=== PATIENT | male | born 1960 | race Caucasian/White ===

== ENCOUNTER → 2018-07-13 07:25 | Outpatient (CLI) | payer BC, SELFPAY ==
[2018-07-13 08:31] LABS: Alanine Aminotransferase 52 IU/L (21-72); Albumin 4.5 g/dL (3.5-5.0); Albumin Globulin Ratio 1.5 (1.0-2.8); Alkaline Phosphatase 58 U/L (38-126); Aspartate Aminotransferase 31 IU/L (17-59); BUN Creatinine Ratio 17.8 (6-22); Bilirubin Total 0.7 mg/dL (0.2-1.3); Blood Urea Nitrogen 16 mg/dL (9-20); Calcium 9.7 mg/dL (8.4-10.2); Carbon Dioxide 30 mmol/L (22-32); Chloride 104 mmol/L (98-107); Cholesterol 190 mg/dL (140-199); Estimated Glomerular Filt Rate > 60.0 mL/min (>60); Glucose 91 mg/dL (70-100); HDL Cholesterol 42 mg/dL (40-60); HEMOLYSIS < 15 (0-50); LDL Cholesterol Calculated 86 mg/dL (<100); Potassium 4.1 mmol/L (3.4-5.1); Sodium 144 mmol/L (137-145); Total Protein 7.5 g/dL (6.3-8.2); Triglycerides 308 mg/dL (35-150)
[2018-07-13 08:46] LABS: Vitamin D 25 Hydroxy (D3) 34.1 ng/mL (30.0-100.0)
[2018-07-13 08:59] LABS: Prostate Specific Antigen Scrn 0.492 ng/mL (0.1-4.0)
== END ==
PROVIDERS: PCP Family Medicine; Visit Provider Student in an Organized Health Care Education/Training Program
DX: E78.2 Mixed hyperlipidemia (principal); E78.00 Pure hypercholesterolemia, unspecified; K21.9 Gastro-esophageal reflux disease without esophagitis; R10.30 Lower abdominal pain, unspecified; Z12.5 Encounter for screening for malignant neoplasm of prostate; E55.9 Vitamin D deficiency, unspecified
CPT/HCPCS: 36415; 80053; 80061; 82306; G0103

== ENCOUNTER → 2018-08-03 15:15 | Outpatient (CLI) | payer BC, SELFPAY ==
--- NOTE | 2018-08-03 | DI.CT.S_ITS ---
PROCEDURE: CT SINUS SCREEN WO CON INDICATIONS: POST NASAL DRIP, POLYP, CHRONIC SINUSITIS TECHNIQUE: Noncontrast 3.0 mm axial images acquired from the frontal sinuses to the mid-sella, with coronal and sagittal reformats. For radiation dose reduction, the following was used: automated exposure control, adjustment of mA and/or kV according to patient size. COMPARISON: [facility], CT, SINUS SCREEN WO CONTRAST, 06/07/2017, 8:16. FINDINGS: Image quality: Excellent. Maxillary Sinuses: No bony remodeling or destruction. Sinuses are clear. Ethmoid Air Cells: No bony remodeling or destruction. Sinuses are clear. Sphenoid Sinuses: No bony remodeling or destruction. Sinuses are clear. Frontal Sinuses: No bony remodeling or destruction. Sinuses are clear. Ostiomeatal Complexes: Ostiomeatal complexes are patent. No Eric cells. Miscellaneous: Visualized intra-orbital contents are normal. Apparent nasal polyps can be seen. No nikolas bullosa tiny seen. There is partial paradoxical turbinate curvature. No nasal septal deviation. IMPRESSION: No significant active paranasal sinus disease is seen. Apparent nasal polyps can be seen. Partial paradoxical curvature is seen of the middle turbinates. Dictated by: Cordell Dumont M.D. on 08/03/2018 at 14:41 Approved by: Cordell Dumont M.D. on 08/03/2018 at 14:43
== END ==
PROVIDERS: PCP Family Medicine; Visit Provider Otolaryngology
DX: J32.9 Chronic sinusitis, unspecified (principal); J33.9 Nasal polyp, unspecified
CPT/HCPCS: 70486

== ENCOUNTER → 2019-08-23 07:59 | Outpatient (CLI) | payer BC, SELFPAY ==
[2019-08-23 09:18] LABS: Cholesterol 229 mg/dL (140-199); HDL Cholesterol 46 mg/dL (40-60); LDL Cholesterol Calculated 132 mg/dL (<100); Triglycerides 256 mg/dL (35-150)
[2019-08-23 14:10] LABS: Prostate Specific Antigen Scrn 0.429 ng/mL (0.1-4.0)
== END ==
PROVIDERS: PCP Student in an Organized Health Care Education/Training Program; Visit Provider Student in an Organized Health Care Education/Training Program
DX: Z12.5 Encounter for screening for malignant neoplasm of prostate (principal); E78.00 Pure hypercholesterolemia, unspecified
CPT/HCPCS: 36415; 80061; G0103

== ENCOUNTER → 2020-08-07 07:05 | Outpatient (CLI) | payer BC, SELFPAY ==
[2020-08-07 08:30] LABS: Cholesterol 174 mg/dL (140-199); HDL Cholesterol 50 mg/dL (40-60); LDL Cholesterol Calculated 89 mg/dL (<100); Triglycerides 176 mg/dL (35-150)
== END ==
PROVIDERS: PCP Student in an Organized Health Care Education/Training Program; Referring Provider Student in an Organized Health Care Education/Training Program; Visit Provider Student in an Organized Health Care Education/Training Program
DX: E78.2 Mixed hyperlipidemia (principal)
CPT/HCPCS: 36415; 80061

== ENCOUNTER → 2020-10-30 15:49 | Outpatient (CLI) | payer BC, SELFPAY ==
[2020-10-30 16:12] LABS: Add Manual Diff / Slide Review NO; Basophils Absolute Auto 0 /uL (0-100); Basophils Percent Auto 0.3 % (0-2); Eosinophils Absolute Auto 100 /uL (0-450); Hematocrit 48.7 % (41-53); Hemoglobin 16.5 g/dL (13.5-17.5); Lymphocytes Absolute Auto 1700 /uL (1100-4500); Lymphocytes Percent Auto 24.9 % (25-40); Mean Corpuscular Hemoglobin 30.8 PG (26-34); Mean Corpuscular Volume 90.7 fL (80-100); Monocytes Absolute Auto 500 /uL (0-900); Monocytes Percent Auto 7.4 % (3-14); Neutrophils Absolute Auto 4500 /uL (1500-7000); Neutrophils Percent Auto 66.4 % (50-75); Platelet Count 170 X10^3/uL (150-400); Red Blood Cell Count 5.37 X10^6/uL (4.5-5.9); Red Cell Distribution Width 13.2 % (11.6-14.8); White Blood Cell Count 6.8 X10^3/uL (4.5-11.0)
[2020-10-30 16:26] LABS: Erythrocyte Sedimentation Rate 7 MM/HR (0-15)
[2020-10-30 16:33] LABS: C-Reactive Protein Quant < 0.5 mg/dL (<1.0)
== END ==
PROVIDERS: PCP Student in an Organized Health Care Education/Training Program; Referring Provider Student in an Organized Health Care Education/Training Program; Visit Provider Student in an Organized Health Care Education/Training Program
DX: H53.149 Visual discomfort, unspecified (principal); H93.12 Tinnitus, left ear; R51.9 Headache, unspecified
CPT/HCPCS: 36415; 85025; 85651; 86140

== ENCOUNTER → 2020-11-17 15:37 | Outpatient (CLI) | payer BC, SELFPAY ==
--- NOTE | 2020-11-17 15:38 | DI.MRI.S_ITS ---
PROCEDURE: MR HEAD/BRAIN WO CON INDICATIONS: Intractable headache, new pattern after age 48 TECHNIQUE: Noncontrast axial T1 spin echo, axial T2 fast spin echo, sagittal and axial FLAIR, coronal T2 fast spin echo, axial gradient echo, axial diffusion and ADC through the brain. COMPARISON: None. FINDINGS: Image quality: Excellent. CSF Spaces: Basal cisterns are patent. No extra-axial fluid collections. Ventricles are normal in size and shape. Brain: No intracranial masses or hemorrhage. Barnhart/white matter interface is normal. Brainstem appears normal. Diffusion-weighted images demonstrate no acute ischemic insult. No chronic ischemic insults. Normal intravascular flow voids are present. Skull and face: Calvarium has normal marrow signal. Orbits appear normal. Sinuses: Sinuses and mastoids are clear. IMPRESSION: Negative brain MRI. No explanation for headache. No recent infarct. Dictated by: Aleksandar Varela M.D. on 11/17/2020 at 16:45 Approved by: Aleksandar Varela M.D. on 11/17/2020 at 16:46
== END ==
PROVIDERS: PCP Student in an Organized Health Care Education/Training Program; Referring Provider Student in an Organized Health Care Education/Training Program; Visit Provider Student in an Organized Health Care Education/Training Program
DX: R51.9 Headache, unspecified (principal)
CPT/HCPCS: 70551

== ENCOUNTER → 2021-01-08 15:13 | Outpatient (CLI) | payer BC, SELFPAY ==
[2021-01-08] MEDS: COVID-19 VACC #1, MRNA(MOD) 100 MCG/0.5 ML VIAL IM (15:18)
== END ==
PROVIDERS: PCP Student in an Organized Health Care Education/Training Program; Visit Provider Internal Medicine
DX: Z23 Encounter for immunization (principal)
CPT/HCPCS: 0011A; 91301

== ENCOUNTER → 2021-02-05 13:40 | Outpatient (CLI) | payer BC, SELFPAY ==
[2021-02-05] MEDS: COVID-19 VACC #2, MRNA(MOD) 100 MCG/0.5 ML VIAL IM (13:45)
== END ==
PROVIDERS: PCP Student in an Organized Health Care Education/Training Program; Visit Provider Internal Medicine
DX: Z23 Encounter for immunization (principal)
CPT/HCPCS: 0012A; 91301

== ENCOUNTER → 2021-08-27 15:19 | Outpatient (CLI) | payer BC, SELFPAY ==
[2021-08-27] MEDS: COVID-19 VACC #3, MRNA(MOD) 50 MCG/0.25 ML VIAL IM (15:31)
== END ==
PROVIDERS: PCP Student in an Organized Health Care Education/Training Program; Visit Provider Internal Medicine
DX: Z23 Encounter for immunization (principal)
CPT/HCPCS: 0013A; 91301

== ENCOUNTER → 2021-09-28 10:31 | Outpatient (CLI) | payer BC, SELFPAY ==
[2021-09-28 11:35] LABS: Triglycerides 180 mg/dL (35-150)
[2021-09-28 12:06] LABS: Prostate Specific Antigen Scrn 0.611 ng/mL (0.1-4.0)
== END ==
PROVIDERS: PCP Student in an Organized Health Care Education/Training Program; Referring Provider Student in an Organized Health Care Education/Training Program; Visit Provider Student in an Organized Health Care Education/Training Program
DX: Z12.5 Encounter for screening for malignant neoplasm of prostate (principal); E78.5 Hyperlipidemia, unspecified
CPT/HCPCS: 36415; 84478; G0103

== ENCOUNTER 2023-06-09 07:06 | Day surgery (SDC) | payer BC, SELFPAY ==
--- NOTE | 2023-06-09 | PATH_ITS ---
[facility] Accession Number: [id number] No. of containers..03 Tissue . 01 Material submitted: . PART A: cecum - CECUM POLYP PART B: colon - TRANSVERSE POLYP PART C: colon - DESCENDING POLYPS X 2 . 01 Diagnosis: A. Cecum Polyp: Colonic mucosa with no diagnostic abnormality, consistent with polypoid redundancy. Additional levels were examined. . B. Transverse Colon, Polyp: Sessile serrated adenoma. . C. Descending Colon, Polyps x2: Hyperplastic polyps. [facility] 06/16/2023 1653 Local . 01 Electronically signed: . Maura Carrillo MD, Pathologist NPI- [id number] . 01 Gross description: . Part A: CECUM POLYP: Received in formalin is 1 fragment(s) of willis, soft tissue measuring 0.3 x 0.2 x 0.2 cm submitted entirely in 1 cassette(s) Part B: TRANSVERSE POLYP: Received in formalin is 1 fragment(s) of willis, soft tissue measuring 0.6 x 0.2 x 0.1 cm submitted entirely in 1 cassette(s) Part C: DESCENDING POLYPS X 2: Received in formalin is 2 fragment(s) of willis, soft tissue measuring 0.2 x 0.2 x 0.1 cm to 0.2 x 0.1 x 0.1 cm submitted entirely in 1 cassette(s) /AAY 06/13/2023 0023 Local . 01 Pathologist provided ICD-10: D12.3 . 01 CPT . 127821, 426830, 080469 Specimen Comment: A courtesy copy of this report has been sent to [facility] Pathology Performed at: 01 [facility] [address] [place] [address] [address], [place], [place] [id number] MD Shiv Walker MD Phone: [phone]
[2023-06-09 07:21] VITALS: BMI 28.0
[2023-06-09 07:31] VITALS: BP 143/92; PULSE 85; RESP 16; TEMP 36.2; O2SAT 93
[2023-06-09] MEDS: LACTATED RINGERS 1,000 ML 42 ML IV (07:32)
--- NOTE | 2023-06-09 07:44 | P.HP_ITS ---
History of Present Illness History of Present Illness Date Patient Seen: 06/09/23 Time Patient Seen: 07:40 Chief complaint: Screening Colonoscopy Narrative: Mr. Pardo presents today for a screening colonoscopy. He has a history of polyps. He has had 2 colonoscopies in the past the last 1 was about 3 years ago. It was done in ever it. He had several polyps and was recommended to have a 3 year follow-up. He has no family history of colon cancer and no symptoms that are concerning to him no bleeding or changes in bowel habits. He has no further questions and would like to proceed [facility] Medical History (Updated 06/09/23 @ 07:45 by Izzy Tse MD) Facial trauma Fractures (Unknown) Gastroesophageal reflux disease without esophagitis (09/05/16) Lateral epicondylitis of left elbow Nasal polyp (08/14/17) Spasm of muscle of lower back Tinnitus of right ear Unilateral inguinal hernia (01/05/04) Surgical History (Updated 06/30/18 @ 09:58 by Shahla Faulkner LPN) History of nasal surgery (~1977) Hx of knee surgery (~1977) Family History (Updated 06/30/18 @ 10:00 by Shahla Faulkner LPN) Brother Cancer Father Stroke Mother Cancer Diabetes mellitus Social History household members: spouse Smoking Status: Never smoker alcohol intake: current substance use type: does not use Meds Home Medications and Allergies Home Medications Medication Instructions Recorded Confirmed Type No Known Home Medications 06/09/23 06/09/23 History Allergies Allergy/AdvReac Type Severity Reaction Status Date / Time No Known Drug Allergies Allergy Verified 06/09/23 07:21 Exam Vital Signs (past 8 hours): - 06/09/23 07:31 Temperature 97.1 F L Pulse Rate 85 Respiratory Rate 16 Blood Pressure 143/92 H Pulse Oximetry 93 Oxygen Delivery Method Room Air Oxygen Delivery Method Room Air Const General: cooperative, healthy appearing and comfortable Nutritional Appearance: well nourished and overweight HENOH Head: normal to inspection and normocephalic Eyes General: appearance normal, both eyes and all related structures Resp Effort & Inspection: normal respiratory effort and able to speak in complete sentences GI Inspection: normal to inspection Palpation: soft and No tender Assessment & Plan Assessment and plan (1) History of colon polyps: Status: Acute (2) Screening for colon cancer: Status: Acute Plan Presents today for screening colonoscopy I discussed the risks benefits and alternatives including but not limited to perforation of the colon and an incomplete exam he fully understands these risks and would like to proceed.
--- NOTE | 2023-06-09 08:29 | P.OP.COLON_ITS ---
Operative Date/Time/Diagnoses Date of procedure: 06/09/23 Time of procedure: 08:29 Pre-op diagnosis: History of polyps, no family history, screening Post-op diagnosis: same Procedure & Clinicians Study performed: Colonoscopy and biopsy Indications: Screening for colon cancer and history of polyps Surgeon: Izzy Tse Procedure Notes Procedure in detail: Patient was taken to the endoscopy suite and placed in a left lateral decubitus position. A time-out was performed. With the help of anesthesiologist conscious sedation was induced and monitored throughout the case. A digital rectal exam was performed and there were no masses or strictures. There were s ome external hemorrhoids visualized photographed. The colonoscope was introduced into the anal canal and advanced through to the cecum. A photograph of the appendiceal orifice was obtained. There were multiple sigmoid diverticula as well as a few right-sided diverticula. Photographs were obtained of these lesions. The bowel prep was good [place] bowel prep score of 2. The scope was then withdrawn for a total of 20 minutes including the time for biopsies of a small cecal polyp, a small transverse colon polyp, and 2 descending colon polyps which were both small and sent in the same specimen container.. The scope was then retroflexed and a photograph of the internal hemorrhoidal piles was obtained there was 1 pile that appeared somewhat large. Patient tolerated the procedure well and went in good condition to the postoperative care unit. Findings: diverticulitis, internal hemorrhoids and polyp(s) Specimen(s): other (1. Cecal polyp 2. Transverse polyp 3. Descending colon polyps x2 - all the polyps were small) Complications: none Post-procedure Recommendations: Colonoscopy in 5 years Plan for aftercare: Follow-up recommendations are pending pathology report but if 3 polyps are tubular adenomas then the 5 year recommendation will be continued for a history of polyps.
[2023-06-09 08:40] VITALS: BP 139/70; PULSE 90; RESP 16; TEMP 36.6; O2SAT 98
[2023-06-09 08:44] VITALS: BP 130/94; PULSE 80; RESP 16; O2SAT 98
[2023-06-09 08:48] VITALS: PULSE 86; RESP 16; TEMP 36.1; O2SAT 98
[2023-06-09 08:50] VITALS: BP 124/94; PULSE 81; RESP 16; O2SAT 98
[2023-06-09 09:04] VITALS: BP 130/77; PULSE 82; RESP 16; O2SAT 98
== END 2023-06-09 09:06 | disposition home or self-care (01) ==
PROVIDERS: PCP Pediatrics; Referring Provider Surgery; Visit Provider Surgery
PROC: 0DJD8ZZ Inspection of Lower Intestinal Tract, Via Natural or Artificial Opening Endoscopic (ICD-10-PCS; CPT 45378; principal; 2023-06-09 07:45)
DX: Z12.11 Encounter for screening for malignant neoplasm of colon (principal); Z86.010 Personal history of colon polyps; K57.30 Diverticulosis of large intestine without perforation or abscess without bleeding; K64.8 Other hemorrhoids; D12.3 Benign neoplasm of transverse colon
CPT/HCPCS: 45380; J2704

== ENCOUNTER → 2023-09-29 07:08 | Outpatient (CLI) | payer BC, SELFPAY ==
[2023-09-29 08:35] LABS: Alanine Aminotransferase 68 IU/L (<50); Albumin 4.4 g/dL (3.5-5.0); Albumin Globulin Ratio 1.3 (1.0-2.8); Alkaline Phosphatase 65 U/L (38-126); Aspartate Aminotransferase 34 IU/L (17-59); BUN Creatinine Ratio 13.8 (6-22); Bilirubin Total 1.1 mg/dL (0.2-1.3); Blood Urea Nitrogen 13 mg/dL (9-20); Calcium 10.2 mg/dL (8.4-10.2); Carbon Dioxide 28 mmol/L (22-32); Chloride 103 mmol/L (98-107); Cholesterol 203 mg/dL (140-199); Estimated Glomerular Filt Rate > 60 mL/min (>60); Globulin 3.5 g/dL (1.7-4.1); Glucose 97 mg/dL (80-110); HDL Cholesterol 43 mg/dL (40-60); HEMOLYSIS < 15 (0-50); LDL Cholesterol Calculated 96 mg/dL (<100); Potassium 4.1 mmol/L (3.4-5.1); Sodium 138 mmol/L (137-145); Total Protein 7.9 g/dL (6.3-8.2); Triglycerides 318 mg/dL (35-150)
[2023-09-29 09:05] LABS: Prostate Specific Antigen Scrn 0.542 ng/mL (0.1-4.0)
== END ==
PROVIDERS: PCP Family Medicine; Referring Provider Family Medicine; Visit Provider Family Medicine
DX: Z00.00 Encounter for general adult medical examination without abnormal findings (principal); E78.2 Mixed hyperlipidemia; Z12.5 Encounter for screening for malignant neoplasm of prostate
CPT/HCPCS: 36415; 80053; 80061; G0103

== ENCOUNTER → 2024-03-21 14:22 | Outpatient (CLI) | payer OTHER, SELFPAY ==
--- NOTE | 2024-03-21 14:23 | DI.US.S_ITS ---
PROCEDURE: US ABDOMEN LIMITED INDICATIONS: rt side groin pain; r/o hernia TECHNIQUE: Real-time focused scanning was performed of the abdomen, with image documentation. COMPARISON: None. Findings and impression: At the area of clinical concern in the right groin, there is a fat containing non reducible hernia with sac measuring up to 5.3 x 5.2 cm, and neck measuring 1.2 x 0.8 cm. Dictated by: Jordan Florian M.D. on 03/21/2024 at 16:43 Approved by: Jordan Florian M.D. on 03/21/2024 at 16:44
== END ==
PROVIDERS: PCP Family Medicine; Referring Provider Family Medicine; Visit Provider Family Medicine
DX: K40.30 Unilateral inguinal hernia, with obstruction, without gangrene, not specified as recurrent (principal); R10.31 Right lower quadrant pain
CPT/HCPCS: 76705

== ENCOUNTER 2024-05-01 06:45 | Day surgery (SDC) | payer OTHER, SELFPAY ==
[2024-04-24 14:04] VITALS: BMI 28.7
--- NOTE | 2024-04-30 08:16 | PM.PREOP ---
Pre-operative Note Interval Note History & Physical reviewed/Exam performed by Physician: Yes Changes to H&P: No
[2024-05-01] MEDS: LACTATED RINGERS 1,000 ML 42 ML IV (07:03)
[2024-05-01] MEDS: ACETAMINOPHEN 325 MG TABLET 975 MG PO (07:12)
[2024-05-01 07:13] VITALS: BP 133/86; PULSE 71; RESP 18; TEMP 37; O2SAT 95; BMI 28.7
[2024-05-01] MEDS: LACTATED RINGERS 1,000 ML 21 ML IV (07:44)
[2024-05-01] MEDS: CEFAZOLIN 2 GM/100 ML PREMIX 100 ML IV (07:57)
[2024-05-01] MEDS: BUPIVACAINE 0.25% (PF) VIAL 30 ML INJ (08:08)
[2024-05-01 08:57] VITALS: BP 126/83; PULSE 86; RESP 19; TEMP 36.4; O2SAT 94
[2024-05-01 09:01] VITALS: BP 132/85; PULSE 69; RESP 14; O2SAT 94
[2024-05-01 09:08] VITALS: BP 122/85; PULSE 64; RESP 14; O2SAT 95
[2024-05-01 09:14] VITALS: BP 122/86; PULSE 74; RESP 12; TEMP 36.6; O2SAT 97
[2024-05-01 09:18] VITALS: BP 126/90; PULSE 71; RESP 10; O2SAT 98
--- NOTE | 2024-05-01 09:23 | P.OP_ITS ---
Operative Date/Time/Diagnoses Date of procedure: 05/01/24 Time of procedure: 09:23 Pre-op diagnosis: Right inguinal hernia Post-op diagnosis: same Procedure & Clinicians Procedure: Laparoscopic repair of right inguinal hernia Same procedure as scheduled: Yes Indications: Symptomatic reducible right inguinal hernia Surgeon: Guille Caba Air Compressor Engineer: Souleymane Douglas Anesthesia Type: General Operative Notes Findings: Direct defect only. Specimen(s): none sent Estimated Blood Loss (mL): 20 Procedure in detail: The patient was brought to the operating room and placed supine on the table. Bilateral sequential compression devices were applied. General anesthesia was induced and they were intubated with an endotracheal tube. A velasquez cath was placed in sterile fashion. They received Ancef prior to skin incision. They were prepped and draped in sterile fashion. A time out was performed to ensure the correct patient, procedure and necessary equipment within the operating room. The skin was infiltrated with 0.25% bupivicaine. A 1 cm supra umbilical midline incision was made. The fascia was sharply incised and the abdomen entered traumatically. A 10mm balloon port was placed and pneumoperitoneum was established at 15mm Hg. Inspection of the abdomen demonstrated no evidence of injury upon entry. Two 5 mm ports were then placed under direct visualization in the right and left lower quadrant lateral to the rectus muscle. A right direct hernia was observed. The peritoneum 4 cm superior to the deep inguinal ring between the medial umbilical ligament and the anterior superior iliac spine was incised. The medial preperitoneal dissection was carried out into the space of Retzius bluntly, the bladder was swept inferiorly, the pubis and Porfirio's ligament were identified. Next attention was turned towards the lateral aspect of the peritoneal flap. The preperitoneal fat with the testicular vessels was carefully dissected off the inferior peritoneal flap. The cord was carefully inspected there was no evidence of indirect defect or cord lipoma. The attachements to the direct hernia sac were divided and the direct defect was reduced. A large Bard 3D Max mesh was then placed into the abdomen and positioned such that the myopectineal orifice was completely covered with good overlap on all sides. The peritoneal flap was then repositioned back to its original position and a running V lock suture was used to close the peritoneum such that no bowel could herniate into the preperitoneal space. The area was examined for hemostasis. The 5mm trocars were removed under direct visualization and pneumoperitoneum was deflated through the umbilical trocar, The fascia at the umbilicus was closed with 0-Vicryl in figure of 8 fashion, skin closed with 4-0 Monocyl followed by Dermabond. The sponge and instrument count at the end of the case was correct. Both testicles were entirely within the scrotum at the end of the case. The patient emerged from anesthsia was extubated and transferred to recovery in stable condition. Complications: none Post-operative Condition: stable Disposition: same day surgery
--- NOTE | 2024-05-01 11:53 | SUR.OPER ---
Supine on padded OR bed, head on pillow, arms padded and tucked at sides, legs uncrossed, safety belt at thigh, tape over blanket over lower legs .
== END 2024-05-01 09:50 | disposition home or self-care (01) ==
PROVIDERS: PCP Family Medicine; Referring Provider Surgery; Visit Provider Surgery
PROC: 0YQ54ZZ Repair Right Inguinal Region, Percutaneous Endoscopic Approach (ICD-10-PCS; CPT 49650; principal; 2024-05-01 07:45)
DX: K40.90 Unilateral inguinal hernia, without obstruction or gangrene, not specified as recurrent (principal)
CPT/HCPCS: 49650; J0690; J1100; J1885; J2405; J2704; J3010